=== PATIENT | male | born 1965 | race Hispanic/Latino ===

== ENCOUNTER → 2022-06-07 | Outpatient (CLI) | payer OTHER ==
[2022-06-07 12:41] LABS: CREATININE 0.9 mg/dL (0.5-1.5)
== END | disposition home or self-care (01) ==
LOC: LAB 06-06 15:30
PROVIDERS: ATTEND Internal Medicine Cardiovascular Disease
DX: I71.2 Thoracic aortic aneurysm, without rupture (principal)
CPT/HCPCS: 36415; 82565; 84520

== ENCOUNTER → 2022-10-24 | Outpatient (CLI) | payer OTHER ==
[2022-10-24 12:45] LABS: CREATININE 0.9 mg/dL (0.5-1.5); POTASSIUM 4.1 mmol/L (3.5-5.1)
== END | disposition home or self-care (01) ==
LOC: LAB 08:51
PROVIDERS: ATTEND Internal Medicine Cardiovascular Disease
DX: E11.9 Type 2 diabetes mellitus without complications (principal); I51.7 Cardiomegaly
CPT/HCPCS: 36415; 80048

== ENCOUNTER → 2023-07-16 | Outpatient (CLI) | payer OTHER | END | disposition home or self-care (01) | LOC: RAH 09:16 | PROVIDERS: ATTEND Nurse Practitioner Adult Health | DX: Z13.6 Encounter for screening for cardiovascular disorders (principal) | CPT/HCPCS: 75571 ==

== ENCOUNTER 2023-11-29 01:43 | Emergency (ER) | payer OTHER ==
[~2023-11-29] VITALS: Ht 170.2 cm; Wt 62.6 kg
[2023-11-29] MEDS ORDERED: DIAZEPAM 5 MG/ML 2 ML SYG IVP ONE (05:00)
[2023-11-29] MEDS ORDERED: MORPHINE 4 MG SYG IVP ONE (05:00)
[2023-11-29] MEDS ORDERED: CYCL10TA16 PO (05:02)
[2023-11-29 05:30] VITALS: BP 128/76; PULSE 86; RESP 18; O2SAT 98
== END 2023-11-29 05:58 | disposition home or self-care (01) ==
LOC: EDH 01:43
DX: M54.41 Lumbago with sciatica, right side (principal)
CPT/HCPCS: 99285; 96374; 96375; J3360; J2270